=== PATIENT | female | born 1955 | race Caucasian/White ===

== ENCOUNTER 2019-10-30 06:55 | Emergency (ER) | payer OTHER ==
[~2019-10-30] VITALS: Ht 162.6 cm; Wt 69.9 kg
[2019-10-30 09:21] VITALS: BP 134/71
== END 2019-10-30 09:21 | disposition short-term general hospital (02) ==
LOC: ED 06:55
DX: G44.209 Tension-type headache, unspecified, not intractable (principal); R25.2 Cramp and spasm; I10 Essential (primary) hypertension